=== PATIENT | male | born 1940 | race Caucasian/White ===

== ENCOUNTER 2017-08-27 08:14 | Day surgery (SDC) | payer OTHER ==
[2017-08-27] MEDS ORDERED: ISOS30TA3 PO (08:57)
[2017-08-27] MEDS ORDERED: RAMI5CAP PO (08:57)
[2017-08-27] MEDS ORDERED: MAPA325T PO (08:57)
[2017-08-27] MEDS ORDERED: AMLO5TAB2 PO (08:57)
[2017-08-27] MEDS ORDERED: MULTTAB67 PO (08:57)
[2017-08-27] MEDS ORDERED: ASPI81TA23 PO (08:57)
[2017-08-27] MEDS ORDERED: SOTA120T PO (08:57)
[2017-08-27] MEDS ORDERED: hemp oil PO (08:57)
[2017-08-27] MEDS ORDERED: [UNRECOGNIZED DRUG - CODE] PO (08:57)
[2017-08-27] MEDS ORDERED: ALLO100T PO (08:57)
[2017-08-27] MEDS ORDERED: TAMS0.4C4 PO (08:57)
[2017-08-27] MEDS ORDERED: PROPOFOL 200 MG/20 ML AMP IV ONE (12:00)
[2017-08-27] MEDS ORDERED: LIDOCAINE HCL 1% PF 5 ML SYRINGE OTHER ONE (12:00)
--- NOTE | 2017-08-27 12:58 | CF ---
cc: Colby Craft MD , DATE: 08/27/2017 INDICATION: Mr. Natarajan is a 77-year-old, gentleman with history of high blood pressure, hyperlipidemia. Previous echo showed a reported aortic stenosis. There is severe calcification. Aortic valve cannot be clearly visualized. To undergo transesophageal echo. The risks, the nature, and the benefits of the procedure were clearly stated to him. Risks include esophageal perforation, aspiration, need for endotracheal intubation, even . He understood and agreed to proceed. PROCEDURE: After written informed consent was obtained, the patient was evaluated by the anesthesiologist. Once sedation verified, the probe was advanced without difficulty to esophagus. Multiple views were obtained. There was adequate left ventricular wall contractility. There was mild left atrial enlargement. No clots in the left atrium. No left atrial appendage. There was moderate to severe sclerotic and calcified aortic cuff with adequate opening. A 3D view of the aortic valve was performed. There is adequate opening with maybe minimal stenosis because of the calcification. A bubble test showed no right to left shunt. Cardiac Doppler, there is trivial to mild tricuspid regurgitation. At that point, procedure was complete. Esophageal probe removed. The patient tolerated the procedure. No incident report. CONCLUSION: 1. There is no significant aortic stenosis. 2. There is severe sclerotic aortic cuffs, as mentioned before. Opening is adequate in 2D as well as in 3D view. 3. There is mild left atrial enlargement. 4. No clots in left atrium nor left atrial appendage. 5. Adequate left ventricular systolic function. Ejection fraction may be close to 60%. 6. No [id number] shunt. 7. Trivial to mild mitral regurgitation. Colby Craft MD HS/TL/vh , 10:49 AM , 11:56 AM
== END 2017-08-27 11:30 | disposition home or self-care (01) ==
LOC: HDOC 08:14 → HDIC 08:15 → HDOC 11:30
PROVIDERS: ATTEND Internal Medicine Interventional Cardiology
DX: R93.1 Abnormal findings on diagnostic imaging of heart and coronary circulation (principal); I70.0 Atherosclerosis of aorta; I34.0 Nonrheumatic mitral (valve) insufficiency; I50.9 Heart failure, unspecified; I48.91 Unspecified atrial fibrillation; I10 Essential (primary) hypertension; E78.5 Hyperlipidemia, unspecified
CPT/HCPCS: 93312; 93320; 93325